=== PATIENT | female | born 1940 | race Caucasian/White ===

== ENCOUNTER 2016-12-04 22:53 | Observation (INO) | payer OTHER, MEDICARE ==
[~2016-12-04] VITALS: Ht 160 cm; Wt 71.3 kg
[~2016-12-04 22:53] MED LIST: ASPIR 8181 M1 PO; B COMPLETE1 EACH PO; BIOTIN1000 MICRO PO; COQ-10100 MG PO; GLUCOSAMINE &1 EAC1 PO; HYDROCHLOROTHIA25 MG PO; IBUPROFEN200 M1 PO; KRILL OIL 1,001 EACH PO; LEXAPRO10 MG PO; LEXAPRO20 MG PO; LOVASTATIN10 MG PO; MULTIVITAMIN1 EAC2 PO; NORCO 5/3251 TABLET PO; OMEGA-3 EC SOF1 EAC1 PO; PROBIOTIC1 EAC1 PO; PROSTAMEN SOFT1 EACH PO; SIMETHICONE180 MG PO; TYLENOL EXTRA500 MG PO; VITAMIN C500 M1 PO; VITAMIN C500 MG/15 PO; VITAMIN D2000 INTUN PO; VITAMIN D5000 UNIT PO; VITAMIN E1000 UNI1 PO; VITAMIN E400 UNIT PO; ZANTAC300 MG PO; ZOFRAN ODT4 MG PO; ZYRTEC10 M2 PO
[2016-12-04 23:11] LABS: CREATININE 0.9 mg/dL (0.6-1.3)
[2016-12-04 23:15] LABS: HEMATOCRIT 37.7 % (36.0-46.0); MCH 30.3 PG (29.0-34.0); MCHC 32.6 G/DL (30.0-36.0); MCV 92.9 FL (83-99); PLATELET COUNT 292 K/uL (156-360); RBC DIS.WIDTH-SD 51.3 % (39-53); RED BLOOD COUNT 4.06 M/uL (3.80-5.20); WHITE BLOOD COUNT 8.8 K/uL (4.1-10.2)
[2016-12-04 23:27] LABS: CHLORIDE 104 mEq/L (99-109); POTASSIUM 3.9 mEq/L (3.7-5.4); SODIUM 141 mEq/L (136-147)
[2016-12-04 23:28] LABS: GLUCOSE 134 mg/dL (70-99)
[2016-12-04 23:30] LABS: ANION GAP 11 MEQ/L (2-14)
[2016-12-04 23:32] LABS: GFR ESTIMATE (CALCULATED) > 59 mL/min/
[2016-12-04 23:33] LABS: UREA NITROGEN (BUN) 27 mg/dL (9-23)
[2016-12-04 23:38] LABS: TROP-I INTERPRETATION NEGATIVE; TROPONIN-I < 0.01 ng/mL (0.0-0.30)
[2016-12-05] MEDS ORDERED: ZYRTEC10 M3 PO (00:08)
[2016-12-05] MEDS ORDERED: B COMPLEX #11 EACH PO (00:09)
[2016-12-05] MEDS ORDERED: CO Q-1030 MG PO (00:10)
[2016-12-05] MEDS ORDERED: MELOXICAM7.5 MG PO (00:10)
[2016-12-05] MEDS ORDERED: FISH OIL 1,0001 EAC7 PO (00:10)
[2016-12-05] MEDS ORDERED: VOLTAREN 1% GE100 GM TP (00:10)
[2016-12-05] MEDS ORDERED: VITAMIN D35000 UNIT PO (00:10)
[2016-12-05 01:56] LABS: TROP-I INTERPRETATION NEGATIVE; TROPONIN-I < 0.01 ng/mL (0.0-0.30)
[2016-12-05 05:48] VITALS: BP 131/63
[2016-12-05 07:32] LABS: ADD MIUA? NO; BILIRUBIN NEGATIVE; BLOOD NEGATIVE; COLOR COLORLESS ((YELLOW)); GLUCOSE (STRIP) NEGATIVE; KETONES NEGATIVE; LEUKOCYTES NEGATIVE; NITRITE NEGATIVE; PROTEIN (STRIP) NEGATIVE; SPECIFIC GRAVITY 1.005 (1.000-1.030); UCUL ADDED? NO; UROBILINOGEN 0.2 MG/DL (0.2-1.0)
[2016-12-05 07:41] LABS: INTERNAL CONTROL VALID? YES
[2016-12-05] MEDS ORDERED: CEFTIN500 MG PO (09:26)
[2016-12-05] MEDS ORDERED: AZITHROMYCIN500 M1 PO (09:26)
[2016-12-05] MEDS ORDERED: ASPIR 8181 M1 PO (09:27)
[2016-12-05 10:17] VITALS: BP 124/59
[2016-12-05 11:38] VITALS: BP 122/66
== END 2016-12-05 12:33 | disposition home or self-care (01) ==
LOC: EME → EDBD 22:53 → EDOF 12-05 03:48 → 5WEST 12-05 05:28
PROVIDERS: Emergency Medicine; Hospitalist
DX: R07.9 Chest pain, unspecified (principal); J18.9 Pneumonia, unspecified organism; I77.4 Celiac artery compression syndrome; J90 Pleural effusion, not elsewhere classified; I10 Essential (primary) hypertension; M54.9 Dorsalgia, unspecified; R61 Generalized hyperhidrosis; K21.9 Gastro-esophageal reflux disease without esophagitis; F32.9 Major depressive disorder, single episode, unspecified
CPT/HCPCS: 71275; 74174; 80047; 80048; 81003; 83605; 83880; 84484; 85027; 87070; 87205; 87449; 93005; 93306; G0378; J0696; J1100; J1200; J1644; J1940; J2270; J2405; J7050